=== PATIENT | male | born 1955 | race Caucasian/White ===

== ENCOUNTER → 2020-03-25 | Outpatient (CLI) | payer MEDICARE, OTHER | LOC: LAB 14:02 → LAB SHORT 14:02 | DX: L82.0 Inflamed seborrheic keratosis (principal); L30.9 Dermatitis, unspecified; L08.9 Local infection of the skin and subcutaneous tissue, unspecified | CPT/HCPCS: 87070; 87077; 87147; 87186; 87205; 87529; 87798 ==

== ENCOUNTER 2020-07-06 12:58 | Emergency (ER) | payer OTHER ==
[~2020-07-06] VITALS: Ht 172.7 cm; Wt 86.2 kg
[2020-07-06 13:24] LABS: BASOPHILS ABSOLUTE AUTO 0.08 K/mm3 (0.00-0.23); BASOPHILS PERCENT AUTO 1 % (0-2); EOSINOPHILS ABSOLUTE AUTO 0.44 K/mm3 (0.00-0.68); EOSINOPHILS PERCENT AUTO 7 % (0-6); Hematocrit 44.7 % (37.0-53.0); Hemoglobin 14.4 g/dL (13.5-17.5); IMMATURE GRAN ABSOLUTE AUTO 0.03 K/mm3 (0.00-0.10); IMMATURE GRAN PERCENT AUTO 1 % (0-1); LYMPHOCYTES ABSOLUTE AUTO 1.07 K/mm3 (0.84-5.20); LYMPHOCYTES PERCENT AUTO 16 % (21-46); MONOCYTES ABSOLUTE AUTO 1.08 K/mm3 (0.16-1.47); MONOCYTES PERCENT AUTO 17 % (4-13); Mean Corpuscular HGB Conc 32.2 g/dL (31.5-36.5); Mean Corpuscular Volume 96 fL (80-100); Mean Platelet Volume 9.2 fL (9.1-12.4); NEUTROPHILS ABSOLUTE AUTO 3.86 K/mm3 (1.96-9.15); NEUTROPHILS PERCENT AUTO 59 % (41-73); Platelet Count 258 K/mm3 (150-400); RDW Coefficient Variation 12.8 % (11.7-14.2); Red Blood Cell Count 4.64 M/mm3 (4.30-5.90); White Blood Cell Count 6.56 K/mm3 (4.00-11.30)
[2020-07-06 13:39] LABS: Alanine Aminotransfer (ALT/SGP 17 U/L (12-78); Albumin, Blood 3.1 g/dL (3.4-5.0); Albumin/Globulin Ratio 0.8 (0.8-1.8); Alk Phos 64 U/L (50-136); Anion Gap 3 mmol/L (6-16); Aspartate Aminotrans (AST/SGOT 13 U/L (12-37); Bilirubin, Total 0.4 mg/dL (0.1-1.0); Blood Urea Nitrogen 17 mg/dL (8-24); Bun/Creatinine Ratio 23.8 (12.0-20.0); CO2, Blood 30 mmol/L (21-32); Chloride, Blood 108 mmol/L (98-108); Creatinine, Blood 0.71 mg/dL (0.60-1.20); Globulin, Blood 3.8 g/dL (2.2-4.0); Glomerular Filtration Rate >60 (60-); Glucose, Blood 117 mg/dL (70-99); Potassium, Blood 4.5 mmol/L (3.5-5.5); Sodium, Blood 141 mmol/L (136-145); Total Protein, Blood 6.9 g/dL (6.4-8.2); Troponin I <0.015 ng/mL (0.000-0.040)
[2020-07-06] MEDS ORDERED: PRED20 PO (14:40)
[2020-07-06] MEDS ORDERED: Diflucan150 MG PO (14:40)
== END 2020-07-06 15:25 | disposition home or self-care (01) ==
LOC: ER 12:58
PROVIDERS: Physician Assistant
DX: J44.1 Chronic obstructive pulmonary disease with (acute) exacerbation (principal); L21.9 Seborrheic dermatitis, unspecified; I25.2 Old myocardial infarction; Z87.891 Personal history of nicotine dependence
CPT/HCPCS: 36415; 71046; 80053; 83880; 84484; 85025; 93005; 93010; 99285-25

== ENCOUNTER 2022-05-11 08:27 | Emergency (ER) | payer OTHER ==
[~2022-05-11] VITALS: Ht 182.9 cm; Wt 95.7 kg
[~2022-05-11 08:27] MED LIST: Diflucan150 MG PO; PRED20 PO
[2022-05-11 09:26] LABS: BASOPHILS ABSOLUTE AUTO 0.07 K/mm3 (0.00-0.23); BASOPHILS PERCENT AUTO 1 % (0-2); EOSINOPHILS ABSOLUTE AUTO 0.15 K/mm3 (0.00-0.68); EOSINOPHILS PERCENT AUTO 2 % (0-6); Hematocrit 46.9 % (37.0-53.0); Hemoglobin 15.2 g/dL (13.5-17.5); IMMATURE GRAN ABSOLUTE AUTO 0.04 K/mm3 (0.00-0.10); IMMATURE GRAN PERCENT AUTO 1 % (0-1); LYMPHOCYTES ABSOLUTE AUTO 1.31 K/mm3 (0.84-5.20); LYMPHOCYTES PERCENT AUTO 16 % (21-46); MONOCYTES ABSOLUTE AUTO 0.95 K/mm3 (0.16-1.47); MONOCYTES PERCENT AUTO 12 % (4-13); Mean Corpuscular HGB 31.2 pg (26.0-34.0); Mean Corpuscular HGB Conc 32.4 g/dL (31.5-36.5); Mean Corpuscular Volume 96 fL (80-100); Mean Platelet Volume 9.3 fL (9.1-12.4); NEUTROPHILS ABSOLUTE AUTO 5.56 K/mm3 (1.96-9.15); NEUTROPHILS PERCENT AUTO 69 % (41-73); Platelet Count 274 K/mm3 (150-400); RDW Coefficient Variation 12.4 % (11.7-14.2); Red Blood Cell Count 4.87 M/mm3 (4.30-5.90); White Blood Cell Count 8.08 K/mm3 (4.00-11.30)
[2022-05-11 09:41] LABS: Albumin, Blood 3.3 g/dL (3.4-5.0); Albumin/Globulin Ratio 0.8 (0.8-1.8); Bilirubin, Total 0.2 mg/dL (0.1-1.0); Bun/Creatinine Ratio 21.6 (12.0-20.0); Calcium, Blood 8.9 mg/dL (8.5-10.1); Creatinine, Blood 0.79 mg/dL (0.60-1.20); Potassium, Blood 4.3 mmol/L (3.5-5.5); Total Protein, Blood 7.3 g/dL (6.4-8.2)
[2022-05-11 10:02] LABS: Influenza A, PCR NEGATIVE (NEGATIVE); Influenza B, PCR NEGATIVE (NEGATIVE); Resp Syncytial Virus, PCR NEGATIVE (NEGATIVE); SARS-Cov-2 (COVID-19) PCR, MMC NEGATIVE (NEGATIVE)
[2022-05-11] MEDS ORDERED: BUDESONIDE-FO10.2 G2 INH (10:07)
[2022-05-11] MEDS ORDERED: Ventolin/Prove6.7 GM (10:07)
[2022-05-11] MEDS ORDERED: IPRAT-ALBUT 0.5-3 ML (10:07)
[2022-05-11] MEDS ORDERED: LISINOPRIL2.5 MG PO (10:07)
[2022-05-11] MEDS ORDERED: ELIQUIS5 M3 PO (10:08)
[2022-05-11] MEDS ORDERED: KLOR-CON 1010 ME2 PO (10:08)
[2022-05-11] MEDS ORDERED: FUROSEMIDE20 MG PO (10:08)
[2022-05-11] MEDS ORDERED: Pravastatin Sod80 MG PO (10:08)
[2022-05-11] MEDS ORDERED: SYMBICORT 160-4.6 GM (10:10)
[2022-05-11] MEDS ORDERED: CARVEDILOL6.25 MG PO (10:10)
[2022-05-11] MEDS ORDERED: PRED20 PO (13:58)
[2022-05-11] MEDS ORDERED: AZIT250 PO (13:58)
== END 2022-05-11 14:17 | disposition home or self-care (01) ==
LOC: ER 08:27
PROVIDERS: Physician Assistant; Student in an Organized Health Care Education/Training Program
DX: J44.1 Chronic obstructive pulmonary disease with (acute) exacerbation (principal); I25.2 Old myocardial infarction; Z87.891 Personal history of nicotine dependence; Z20.822 Contact with and (suspected) exposure to COVID-19; Z99.81 Dependence on supplemental oxygen; Z79.899 Other long term (current) drug therapy; Z79.01 Long term (current) use of anticoagulants
CPT/HCPCS: 0241U; 36415; 71046; 80053; 83880; 84484; 85025; 93005; 93010; 94640; 94644; 94664; J0456; J2930; J7050

== ENCOUNTER 2022-07-10 17:50 | Observation (INO) | payer OTHER ==
[~2022-07-10] VITALS: Ht 180.3 cm; Wt 102.1 kg
[~2022-07-10 17:50] MED LIST changes: +AZIT250 PO; +BUDESONIDE-FO10.2 G2 INH; +CARVEDILOL6.25 MG PO; +ELIQUIS5 M3 PO; +FUROSEMIDE20 MG PO; +IPRAT-ALBUT 0.5-3 ML; +KLOR-CON 1010 ME2 PO; +LISINOPRIL2.5 MG PO; +Pravastatin Sod80 MG PO; +SYMBICORT 160-4.6 GM; +Ventolin/Prove6.7 GM INH
[2022-07-10 18:12] LABS: BASOPHILS ABSOLUTE AUTO 0.06 K/mm3 (0.00-0.23); BASOPHILS PERCENT AUTO 0 % (0-2); EOSINOPHILS ABSOLUTE AUTO 0.06 K/mm3 (0.00-0.68); EOSINOPHILS PERCENT AUTO 0 % (0-6); Hematocrit 45.5 % (37.0-53.0); Hemoglobin 15.3 g/dL (13.5-17.5); IMMATURE GRAN ABSOLUTE AUTO 0.05 K/mm3 (0.00-0.10); IMMATURE GRAN PERCENT AUTO 0 % (0-1); LYMPHOCYTES ABSOLUTE AUTO 2.08 K/mm3 (0.84-5.20); LYMPHOCYTES PERCENT AUTO 15 % (21-46); MONOCYTES ABSOLUTE AUTO 1.25 K/mm3 (0.16-1.47); MONOCYTES PERCENT AUTO 9 % (4-13); Mean Corpuscular HGB 31.5 pg (26.0-34.0); Mean Corpuscular HGB Conc 33.6 g/dL (31.5-36.5); Mean Corpuscular Volume 94 fL (80-100); Mean Platelet Volume 9.3 fL (9.1-12.4); NEUTROPHILS ABSOLUTE AUTO 10.84 K/mm3 (1.96-9.15); NEUTROPHILS PERCENT AUTO 76 % (41-73); Platelet Count 222 K/mm3 (150-400); RDW Coefficient Variation 12.6 % (11.7-14.2); Red Blood Cell Count 4.85 M/mm3 (4.30-5.90); White Blood Cell Count 14.34 K/mm3 (4.00-11.30)
[2022-07-10 18:36] LABS: Albumin, Blood 3.4 g/dL (3.4-5.0); Bilirubin, Total 0.7 mg/dL (0.1-1.0); Creatinine, Blood 0.8 mg/dL (0.60-1.20); Globulin, Blood 3.3 g/dL (2.2-4.0); Potassium, Blood 4.2 mmol/L (3.5-5.5); Total Protein, Blood 6.7 g/dL (6.4-8.2)
[2022-07-10 20:19] LABS: Influenza A, PCR NEGATIVE (NEGATIVE); Influenza B, PCR NEGATIVE (NEGATIVE); Resp Syncytial Virus, PCR NEGATIVE (NEGATIVE); SARS-Cov-2 (COVID-19) PCR, MMC NEGATIVE (NEGATIVE)
[2022-07-10 22:04] LABS: Thyroid Stimulating Hormone 0.565 uIU/mL (0.360-4.800)
[2022-07-11 05:27] LABS: BASOPHILS ABSOLUTE AUTO 0.02 K/mm3 (0.00-0.23); BASOPHILS PERCENT AUTO 0 % (0-2); EOSINOPHILS PERCENT AUTO 0 % (0-6); Hematocrit 45.5 % (37.0-53.0); Hemoglobin 15.1 g/dL (13.5-17.5); IMMATURE GRAN ABSOLUTE AUTO 0.06 K/mm3 (0.00-0.10); IMMATURE GRAN PERCENT AUTO 1 % (0-1); LYMPHOCYTES PERCENT AUTO 8 % (21-46); MONOCYTES ABSOLUTE AUTO 0.15 K/mm3 (0.16-1.47); MONOCYTES PERCENT AUTO 1 % (4-13); Mean Corpuscular HGB 31.5 pg (26.0-34.0); Mean Corpuscular HGB Conc 33.2 g/dL (31.5-36.5); Mean Corpuscular Volume 95 fL (80-100); Mean Platelet Volume 9.8 fL (9.1-12.4); NEUTROPHILS ABSOLUTE AUTO 10.12 K/mm3 (1.96-9.15); NEUTROPHILS PERCENT AUTO 90 % (41-73); Platelet Count 211 K/mm3 (150-400); RDW Coefficient Variation 12.6 % (11.7-14.2); RDW Standard Deviation 44.1 fL (35.1-46.3); Red Blood Cell Count 4.79 M/mm3 (4.30-5.90); White Blood Cell Count 11.25 K/mm3 (4.00-11.30)
[2022-07-11 05:54] LABS: Bun/Creatinine Ratio 27.1 (12.0-20.0); Calcium, Blood 9.3 mg/dL (8.5-10.1); Creatinine, Blood 0.81 mg/dL (0.60-1.20); Potassium, Blood 4.5 mmol/L (3.5-5.5)
--- NOTE | 2022-07-11 06:09 | NUR ---
PATIENT ADMITTED OVERNIGHT FOR CPOD EXACERBATION. CURRENTLY ON 3L NC, BASELINE IS 2L. PATIENT ON CONT PULSE OX AND TELE MONITOR RUNNING SR WITH 1ST DEGREE HB. PATIENT REPORTS HIS BREATHING FEELS BETTER NOW. PLAN FOR ECHO TODAY. CALL LIGHT IN REACH.
--- NOTE | 2022-07-11 16:59 | NUR ---
SHIFT SUMMARY PT A&OX4 AND PLEASANT. NO ACUTE CHANGES. PT ON 3L O2 AND SATING IN THE LOW 90%. DENIES FEELING DIZZY WITH STANDING OR AMBULATION. PT BECOMES SOB WITH ACTIVITY AND TAKES SEVERAL MINUTES TO RECOVER. ECHO PERFOMED AT BEDSIDE. VSS. NO C/O PAIN. INDEPENDENT IN ROOM. CALLS APPROPRIATELY. BED IN LOWEST POSITION AND CALL LIGHT IN REACH.
[2022-07-12 08:23] LABS: Albumin, Blood 3.1 g/dL (3.4-5.0); Anion Gap 3 mmol/L (6-16); Blood Urea Nitrogen 30 mg/dL (8-24); CO2, Blood 27 mmol/L (21-32); Calcium, Blood 9.2 mg/dL (8.5-10.1); Chloride, Blood 106 mmol/L (98-108); Creatinine, Blood 0.81 mg/dL (0.60-1.20); Glomerular Filtration Rate 97 (60-); Glucose, Blood 176 mg/dL (70-99); Phosphorus, Blood 2.3 mg/dL (2.5-4.9); Potassium, Blood 5.1 mmol/L (3.5-5.5); Sodium, Blood 136 mmol/L (136-145)
[2022-07-12 08:45] LABS: Hematocrit 42.4 % (37.0-53.0); Hemoglobin 14.2 g/dL (13.5-17.5); Mean Corpuscular HGB 31.6 pg (26.0-34.0); Mean Corpuscular HGB Conc 33.5 g/dL (31.5-36.5); Mean Corpuscular Volume 94 fL (80-100); Mean Platelet Volume 10.1 fL (9.1-12.4); Platelet Count 247 K/mm3 (150-400); RDW Coefficient Variation 12.6 % (11.7-14.2); RDW Standard Deviation 43.6 fL (35.1-46.3); White Blood Cell Count 17.76 K/mm3 (4.00-11.30)
[2022-07-12] MEDS ORDERED: VISBIOME 112.51 EACH PO (11:27)
[2022-07-12] MEDS ORDERED: AZITHROMYCIN500 M1 PO (11:28)
[2022-07-12] MEDS ORDERED: CEFD300 PO (11:29)
[2022-07-12] MEDS ORDERED: CARV3.125 PO (11:30)
[2022-07-12] MEDS ORDERED: Prednisone10 MG PO (11:33)
[2022-07-12] MEDS ORDERED: K-Phos Origina500 MG PO (13:16)
[2022-07-12] MEDS ORDERED: XARELTO20 MG PO (13:17)
--- NOTE | 2022-07-12 14:28 | NUR ---
DISCHARGE SUMMARY PATIENT IS ALERT AND ORIENTED. PATIENT HAS HAD NO ACUTE EVENTS THIS SHIFT. PATIENT WAS ADMITTED FOR COPD EXASPERATION. PATIENT REQUIRED 4L NC ALL SHIFT. PATIENT IS BEING DISCHARGED HOME. PATIENT WAS READ AND UNDERSTOOD DISCHARGE INSTRUCTIONS. MEDICATIONS WERE FAXED TO PATIENTS PHARMACY. PATIENT WAS WHEELED DOWN BY THIS RN. PATIENTS SON WAS AWAITING FOR PATIENT.
== END 2022-07-12 13:34 | disposition home or self-care (01) ==
LOC: ER 17:50 → MEDS 17:51
PROVIDERS: Emergency Medicine; Internal Medicine; Student in an Organized Health Care Education/Training Program; ADMIT Hospitalist
DX: J44.1 Chronic obstructive pulmonary disease with (acute) exacerbation (principal); J96.21 Acute and chronic respiratory failure with hypoxia; J18.9 Pneumonia, unspecified organism; E83.39 Other disorders of phosphorus metabolism; I95.2 Hypotension due to drugs; T46.5X5A Adverse effect of other antihypertensive drugs, initial encounter; I25.10 Atherosclerotic heart disease of native coronary artery without angina pectoris; E66.9 Obesity, unspecified; I48.0 Paroxysmal atrial fibrillation; Z95.5 Presence of coronary angioplasty implant and graft; Z79.01 Long term (current) use of anticoagulants; Z99.81 Dependence on supplemental oxygen; Z87.891 Personal history of nicotine dependence; Z20.822 Contact with and (suspected) exposure to COVID-19
CPT/HCPCS: 0241U; 36415; 71046; 80048; 80053; 80069; 83880; 84145; 84443; 84484; 85025; 85027; 90686; 93005; 93010; 93306; 94640; 94664; 94760; 94762; 96365; 96366; 96367; 96375; 96376; 99285-25; A9270; G0008; G0378; J0696; J2930; J3475

== ENCOUNTER 2023-06-01 18:29 | Inpatient (IN) | payer OTHER ==
[~2023-06-01] VITALS: Ht 180.3 cm; Wt 92.8 kg
[~2023-06-01 18:29] MED LIST changes: +AZITHROMYCIN500 M1 PO; +CARV3.125 PO; +CEFD300 PO; +K-Phos Origina500 MG PO; +Prednisone10 MG PO; +VISBIOME 112.51 EACH PO; +XARELTO20 MG PO
[2023-06-01 19:18] LABS: BASOPHILS ABSOLUTE AUTO 0.08 K/mm3 (0.00-0.23); BASOPHILS PERCENT AUTO 1 % (0-2); EOSINOPHILS ABSOLUTE AUTO 0.44 K/mm3 (0.00-0.68); EOSINOPHILS PERCENT AUTO 5 % (0-6); Hematocrit 46.9 % (37.0-53.0); Hemoglobin 15.8 g/dL (13.5-17.5); IMMATURE GRAN ABSOLUTE AUTO 0.03 K/mm3 (0.00-0.10); IMMATURE GRAN PERCENT AUTO 0 % (0-1); LYMPHOCYTES ABSOLUTE AUTO 1.54 K/mm3 (0.84-5.20); LYMPHOCYTES PERCENT AUTO 19 % (21-46); MONOCYTES ABSOLUTE AUTO 0.91 K/mm3 (0.16-1.47); MONOCYTES PERCENT AUTO 11 % (4-13); Mean Corpuscular HGB 31.3 pg (26.0-34.0); Mean Corpuscular HGB Conc 33.7 g/dL (31.5-36.5); Mean Corpuscular Volume 93 fL (80-100); Mean Platelet Volume 9.1 fL (9.1-12.4); NEUTROPHILS ABSOLUTE AUTO 5.18 K/mm3 (1.96-9.15); NEUTROPHILS PERCENT AUTO 63 % (41-73); Platelet Count 240 K/mm3 (150-400); RDW Coefficient Variation 12.2 % (11.7-14.2); RDW Standard Deviation 42.3 fL (35.1-46.3); Red Blood Cell Count 5.05 M/mm3 (4.30-5.90); White Blood Cell Count 8.18 K/mm3 (4.00-11.30)
[2023-06-01 19:26] LABS: Base Excess Venous 3.5 mmol/L; Bicarbonate Venous 27.3 mmol/L (24.0-30.0); PCO2 Venous 39.3 mmHg (38-42); pH Blood Venous 7.45 (7.34-7.37)
[2023-06-01 19:42] LABS: Albumin, Blood 3.2 g/dL (3.4-5.0); Albumin/Globulin Ratio 0.9 (0.8-1.8); Bilirubin, Total 0.4 mg/dL (0.1-1.0); Bun/Creatinine Ratio 24.5 (12.0-20.0); Calcium, Blood 9.1 mg/dL (8.5-10.1); Creatinine, Blood 0.82 mg/dL (0.60-1.20); Globulin, Blood 3.6 g/dL (2.2-4.0); Potassium, Blood 4.4 mmol/L (3.5-5.5); Total Protein, Blood 6.8 g/dL (6.4-8.2)
[2023-06-01 20:57] LABS: Influenza A, PCR NEGATIVE (NEGATIVE); Influenza B, PCR NEGATIVE (NEGATIVE); Resp Syncytial Virus, PCR NEGATIVE (NEGATIVE); SARS-Cov-2 (COVID-19) PCR, MMC NEGATIVE (NEGATIVE)
[2023-06-01] MEDS ORDERED: LISINOPRIL2.5 MG PO (23:38)
[2023-06-01] MEDS ORDERED: FUROSEMIDE20 MG PO (23:39)
[2023-06-02] VITALS (23 sets, daily range): BP systolic 103–139; BP diastolic 56–86
--- NOTE | 2023-06-02 06:05 | NUR ---
SHIFT SUMMARY PT CAME IN INITIALLY TO THE ED DUE TO SOB, CHEST PAIN AND ABDOMINAL PAIN, FOR WHICH HE WAS BEING WORKED UP FOR. HE WAS TAKEN TO X-RAY BY ED STAFF AND PT STATED HE COULD MOVE TO OR FROM THE X-RAY TABLE ON HIS OWN, BUT TRIPPED OVER A WHEELCHAIR. PT WAS UNABLE TO RECOVER, FELL, AND FRACTURED HIS RIGHT HIP. PT IS ON BEDREST WITH HIS RIGHT LEG BEING EXTERNALLY ROTATED. HE HAS ALSO BEEN NPO SINCE MIDNIGHT FOR POTENTIAL SURGICAL INTERVENTION TODAY (06/02/23). PT HAS BEEN ABLE TO REST FOR THE MAJORITY OF HIS TIME HERE AND HAS HAD NO ACUTE EVENTS OVERNIGHT. BED IS IN LOWEST POSITION, CALL LIGHT IS WITHIN REACH.
[2023-06-02 06:35] LABS: BASOPHILS ABSOLUTE AUTO 0.07 K/mm3 (0.00-0.23); BASOPHILS PERCENT AUTO 1 % (0-2); EOSINOPHILS ABSOLUTE AUTO 0.05 K/mm3 (0.00-0.68); EOSINOPHILS PERCENT AUTO 1 % (0-6); Hematocrit 41.7 % (37.0-53.0); Hemoglobin 13.6 g/dL (13.5-17.5); IMMATURE GRAN ABSOLUTE AUTO 0.04 K/mm3 (0.00-0.10); IMMATURE GRAN PERCENT AUTO 1 % (0-1); LYMPHOCYTES ABSOLUTE AUTO 1.27 K/mm3 (0.84-5.20); LYMPHOCYTES PERCENT AUTO 17 % (21-46); MONOCYTES ABSOLUTE AUTO 0.84 K/mm3 (0.16-1.47); MONOCYTES PERCENT AUTO 11 % (4-13); Mean Corpuscular HGB 31.4 pg (26.0-34.0); Mean Corpuscular HGB Conc 32.6 g/dL (31.5-36.5); Mean Corpuscular Volume 96 fL (80-100); Mean Platelet Volume 9.9 fL (9.1-12.4); NEUTROPHILS ABSOLUTE AUTO 5.22 K/mm3 (1.96-9.15); NEUTROPHILS PERCENT AUTO 70 % (41-73); Platelet Count 213 K/mm3 (150-400); RDW Coefficient Variation 12.2 % (11.7-14.2); RDW Standard Deviation 43.8 fL (35.1-46.3); Red Blood Cell Count 4.33 M/mm3 (4.30-5.90); White Blood Cell Count 7.49 K/mm3 (4.00-11.30)
[2023-06-02 06:37] LABS: International Normalized Ratio 1.03; Prothrombin Time Results 10.8 Sec (9.7-11.5)
[2023-06-02 07:07] LABS: Albumin, Blood 2.9 g/dL (3.4-5.0); Albumin/Globulin Ratio 0.9 (0.8-1.8); Bilirubin, Total 0.5 mg/dL (0.1-1.0); Bun/Creatinine Ratio 23.8 (12.0-20.0); Calcium, Blood 8.8 mg/dL (8.5-10.1); Creatinine, Blood 0.88 mg/dL (0.60-1.20); Globulin, Blood 3.1 g/dL (2.2-4.0); Potassium, Blood 4.4 mmol/L (3.5-5.5)
--- NOTE | 2023-06-02 10:55 | NUR ---
OUT OF ROOM FOR SURGERY AT THIS TIME.
--- NOTE | 2023-06-02 16:10 | NUR ---
SHIFT SUMMARY S/P R HIP NAILING PT REPORTS PAIN GREATLY IMPROVED SINCE SURGERY. DRESSING TO HIP CDI. REPORTS FULL SENSATION. CAP REFILL <3. A FIB ON TELEMETRY. TOLERATING PO WELL. PLAN WILL BE TO WORK WITH THERAPY TOMORROW.
[2023-06-03 03:53] VITALS: BP 105/58
--- NOTE | 2023-06-03 06:30 | NUR ---
SHIFT SUMMARY PT IS POD#1 FOR A RIGHT HIP NAILING. PT RESTED WELL OVERNIGHT, RECEIVING PAIN MEDICATION A COUPLE TIMES OVERNIGHT. NO ACUTE EVENTS OCCURRING THROUGHOUT THE SHIFT, VITAL SIGNS ARE STABLE. BED IS IN LOWEST POSITION, CALL LIGHT IS WITHIN REACH.
[2023-06-03 07:21] VITALS: BP 103/74
[2023-06-03 14:58] VITALS: BP 128/82
--- NOTE | 2023-06-03 15:59 | NUR ---
SHIFT SUMMARY: POD 1 RIGHT HIP NAILING PATIENT IS A&OX4. VS ARE WNL AND IS ON HIS BASELINE OF 2L NC OF OXYGEN WITH >90% OXYGEN SATS. PAIN IS MANAGED WITH PO TYLENOL AND OXY AT THIS TIME. HIS RIGHT HIP HAS AQUACEL DRESSING THAT IS C/D/I. DENIES NUMBNESS OR TINGLING THROUGHOUT ALL EXTREMITIES. HE IS A 1-2 PERSON SBA WITH FWW AND GAIT BELT. HE IS TOLERATING PO INTAKE AND IS VOIDING. PATIENT IS SITTING UP IN THE RECLINER CHAIR WITH CALL LIGHT IN REACH. PATIENT CALLS APPROPRIATELY. THE PLAN IS TO CONTINUE PAIN MANAGEMENT AND TO POSSIBLY DISCHARGE TO [facility] TOMORROW ONCE THERE IS CONFIRMED INSURANCE AUTHORIZATION.
[2023-06-03 19:24] VITALS: BP 159/81
[2023-06-04 01:17] VITALS: BP 122/75
--- NOTE | 2023-06-04 01:56 | NUR ---
CALL FROM TELEMETRY. LATE ENTRY. RECEIVED CALL FROM MEME Barraza IN TELEMETRY AT 0112. PT HAD A 15 BEAT RUN OF VTACH, 1 VARIABLE BEAT, FOLLOWED BY 24 BEATS MORE OF VTACH. PT THEN CONVERTED BACK TO SR 78. THIS RN VISUALIZED PT, PT DENIED SHORTNESS OF BREATH OR CHEST PAIN. PT REPORTED HE HAD A COUGHING EPISODE A MINUTE PRIOR TO THIS RN ENTERING ROOM. VITALS SIGNS STABLE. T/C PLACED TO DR. ARAUZ REGARDING THE ABOVE AT 0140. NEW ORDERS RECEIVED TO ADD A MAGNESIUM LEVEL TO AM LABS. ORDERS PLACED.
[2023-06-04 03:28] VITALS: BP 144/86
[2023-06-04 06:38] LABS: Hematocrit 36.3 % (37.0-53.0); Mean Corpuscular HGB 31.3 pg (26.0-34.0); Mean Corpuscular HGB Conc 33.1 g/dL (31.5-36.5); Mean Corpuscular Volume 95 fL (80-100); Mean Platelet Volume 9.5 fL (9.1-12.4); Platelet Count 184 K/mm3 (150-400); RDW Coefficient Variation 12.1 % (11.7-14.2); RDW Standard Deviation 42.4 fL (35.1-46.3); Red Blood Cell Count 3.84 M/mm3 (4.30-5.90); White Blood Cell Count 8.33 K/mm3 (4.00-11.30)
--- NOTE | 2023-06-04 06:48 | NUR ---
SHIFT SUMMARY NOC. PT POD 2 FOR RIGHT HIP PINNING. PT A/O X4. AQUACEL DRESSING IS C/D/I. PT MEDICATED FOR PAIN X2 THIS SHIFT WITH RELIEF. PT VOIDING AND TOLEARATING PO INTAKE. PT ON TELEMETRY FOR EXTENSIVE CARDIAC HX. PT HAD A RUN OF VTACH THIS SHIFT. PLEASE SEE PREVIOUS NOTE FOR DETAILS. DR. ARAUZ NOTIFIED. PT HAD NO MORE EVENTS THIS SHIFT AND RESTED WITH EYES CLOSED AND CALL LIGHT IN REACH.
[2023-06-04 07:03] LABS: Bun/Creatinine Ratio 19.6 (12.0-20.0); Calcium, Blood 8.9 mg/dL (8.5-10.1); Creatinine, Blood 0.82 mg/dL (0.60-1.20); Potassium, Blood 4.3 mmol/L (3.5-5.5)
[2023-06-04 07:05] VITALS: BP 123/67
[2023-06-04] MEDS ORDERED: CARV3.125 PO (09:50)
[2023-06-04] MEDS ORDERED: BREZTRI AEROS10.7 GM IH (09:52)
[2023-06-04] MEDS ORDERED: NITROGLYCERIN0.4 M1 SL (09:54)
[2023-06-04] MEDS ORDERED: MK-790 MCG PO (09:55)
[2023-06-04] MEDS ORDERED: VITAMIN D325 MC3 PO (09:56)
[2023-06-04 12:37] LABS: Influenza A, PCR NEGATIVE (NEGATIVE); Influenza B, PCR NEGATIVE (NEGATIVE); Resp Syncytial Virus, PCR NEGATIVE (NEGATIVE); SARS-Cov-2 (COVID-19) PCR, MMC NEGATIVE (NEGATIVE)
[2023-06-04] MEDS ORDERED: Percocet 5-3251 EACH PO (14:21)
[2023-06-04] MEDS ORDERED: MIRALAX1714 PO (14:22)
[2023-06-04] MEDS ORDERED: SYMBICORT 160-4.6 GM INH (14:23)
[2023-06-04] MEDS ORDERED: ALBU90OI INH (14:25)
--- NOTE | 2023-06-04 16:35 | NUR ---
DISCHARGE SUMMARY PATIENT SET TO DISCHARGE TO [facility] THIS SHIFT WITH [facility] TO TRANSPORT. IV REMOVED PRIOR TO DISCHARGE, ON 3 LITERS NASAL CANNULA ON DISCHARGE. TRANSFERRED TO WHEELCHAIR WITH 2 MAX ASSIST, WALKER AND GAIT BELT. REPORT CALLED TO [facility], QUESTIONS ANSWERED AND VERBALIZED UNDERSTANDING OF DISCHARGE INSTRUCTIONS. CALLED DR SIMON PRIOR TO DISCHARGE FOR CHANGES TO BETA REJI THAT WAS DISCUSSED EARLIER WHILE SHE WAS ROUNDING. CHANGES WERE MADE FROM [place] AT DISCHARGE BACK TO HOME DOSE OF CARVEDILOL.
== END 2023-06-04 16:34 | DRG 480 ==
LOC: ER 18:29 → MEDS 06-02 00:07 → SURS 06-02 00:07
PROVIDERS: Internal Medicine; Orthopaedic Surgery Sports Medicine; Student in an Organized Health Care Education/Training Program; ADMIT Student in an Organized Health Care Education/Training Program
PROC: 0QS636Z Reposition Right Upper Femur with Intramedullary Internal Fixation Device, Percutaneous Approach (ICD-10-PCS; principal; 2023-06-02 11:00)
DX: S72.141A Displaced intertrochanteric fracture of right femur, initial encounter for closed fracture (principal); J96.21 Acute and chronic respiratory failure with hypoxia; I47.20 Ventricular tachycardia, unspecified; J44.9 Chronic obstructive pulmonary disease, unspecified; I25.10 Atherosclerotic heart disease of native coronary artery without angina pectoris; I10 Essential (primary) hypertension; I48.0 Paroxysmal atrial fibrillation; K59.00 Constipation, unspecified; W01.0XXA Fall on same level from slipping, tripping and stumbling without subsequent striking against object, initial encounter; I25.2 Old myocardial infarction; Z79.01 Long term (current) use of anticoagulants; Z87.891 Personal history of nicotine dependence; Z99.81 Dependence on supplemental oxygen; Z95.5 Presence of coronary angioplasty implant and graft; Z79.51 Long term (current) use of inhaled steroids; Z11.52 Encounter for screening for COVID-19; Y92.238 Other place in hospital as the place of occurrence of the external cause
CPT/HCPCS: 0241U; 36415; 70450; 71046; 73502; 80048; 80053; 82803; 82947; 83735; 83880; 84100; 84484; 85025; 85027; 85610; 93005; 93010; 94640; 94664; 94760; 94762; 96361; 96374; 97110; 97110-CQ; 97162; 97530; 99285-25; A9270; C1713; C1769; J0690; J1100; J1644; J2270; J2371; J2405; J2704; J3010; J7030; J7120